=== PATIENT | male | born 1980 | race Caucasian/White ===

== ENCOUNTER 2021-01-23 13:24 | Emergency (ER) | payer SELFPAY ==
[2021-01-23] MEDS ORDERED: NA CHLORIDE 0.9% 1,000 ML with FOLIC ACID 1 MG, THIAMINE HCL 100 MG, MULTIVITAMINS INJ ... IV SCH ×4 (14:15)
[2021-01-23 14:20] LABS: Urine Blood Negative (Negative); Urine Glucose Negative (Negative); Urine Protein Negative (Negative)
[2021-01-23 14:25] LABS: Absolute Lymphocytes (CBC) 2.1 K/uL (0.7-4.9); Basophils % 0.7 % (0-1.3); Hematocrit 41.7 % (39.6-49.0); Lymphocytes % 30.4 % (15.3-44.8); MPV 8.2 fL (7.6-11.3); RBC Red Blood Cell Count 4.29 M/uL (4.33-5.43)
[2021-01-23] MEDS ORDERED: LORazepam 2 MG/ML VIAL ONE (14:26)
[2021-01-23] MEDS ORDERED: NA CHLORIDE 0.9% 1,000 ML ONE (14:26)
[2021-01-23 14:34] LABS: Protime INR 0.87
[2021-01-23 14:48] LABS: Barbiturates NEGATIVE (NEGATIVE); Benzodiazepines NEGATIVE (NEGATIVE); Cocaine NEGATIVE (NEGATIVE); METHAMPHETAM NEGATIVE (NEGATIVE); Methadone NEGATIVE (NEGATIVE); Opiates NEGATIVE (NEGATIVE); Phencyclidine NEGATIVE (NEGATIVE); THC Cannibis POSITIVE (NEGATIVE)
[2021-01-23 14:50] LABS: Albumin 4.1 g/dL (3.4-5.0); Alkaline Phosphatase 58 U/L (45-117); BUN Blood Urea Nitrogen 8 mg/dL (7-18); Bicarbonate 26 mmol/L (21-32); Bilirubin Direct < 0.1 mg/dL (0-0.2); Bilirubin Total 0.4 mg/dL (0.2-1.0); Glucose Level 99 mg/dL (74-106); Potassium 3.9 mmol/L (3.5-5.1); Protein, Total 7.1 g/dL (6.4-8.2); Sodium Level 143 mmol/L (136-145)
[2021-01-23 14:51] LABS: ALT/SGPT 464 U/L (12-78); AST/SGOT 452 U/L (15-37)
--- NOTE | 2021-01-23 18:36 | EDPHYS ---
Physician Documentation [facility] Name: Fredy Gunter Age: 40 yrs Sex: Male : 1980 Arrival Date: 01/23/2021 Time: 13:33 Bed 19 Private MD: ED Physician Calvin Whitley HPI: 01/23 14:06 This 40 yrs old Male presents to ER via EMS with complaints of Alcohol pm1 Withdrawal. 14:06 The patient presents to the emergency department with a history of substance abuse, pm1 Type: vodka, with a recent binge, 6 days. Onset: The symptoms/episode began/occurred 6 day(s) ago, as a result of getting kicked out by his girlfriend. Past psychiatric history: Prior diagnosis: anxiety and PTSD, Psychiatric medications include: none, Primary psychiatric physician: the patient does not have a primary psychiatric physician. Associated signs and symptoms: The patient has no apparent associated signs or symptoms, Pertinent positives; hallucinations, Pertinent negatives: abdominal pain, chest pain, homicidal ideation, nausea, shortness of breath, suicide ideation, vomiting. Severity of symptoms: in the emergency department the symptoms are unchanged Pain is currently a 0 / 10. The patient has experienced similar episodes in the past, multiple times, stopped drinking about 6 years. History of alcoholism. The patient has not recently seen a physician. Historical: - Allergies: 13:42 Latex, Natural Rubber; vg1 - Home Meds: 13:42 Zoloft Oral [Active]; Clonazepam Oral [Active]; Medication for PTSD-cant remember name vg1 [Active]; - PMHx: 13:42 Anxiety; PTSD; vg1 - Immunization history:: Adult Immunizations up to date. - Social history:: Smoking status: Patient denies any tobacco usage or history of. ROS: 14:06 Constitutional: Negative for fever, chills, and weight loss, Eyes: Negative for injury, pm1 pain, redness, and discharge, ENT: Negative for injury, pain, and discharge, Cardiovascular: Negative for chest pain, palpitations, and edema, Respiratory: Negative for shortness of breath, cough, wheezing, and pleuritic chest pain, Abdomen/GI: Negative for abdominal pain, nausea, vomiting, diarrhea, and constipation, Back: Negative for injury and pain, MS/Extremity: Negative for injury and deformity, Skin: Negative for injury, rash, and discoloration, Neuro: Negative for headache, weakness, numbness, tingling, and seizure. 14:06 Psych: Positive for alcohol dependence, visual hallucinations, Negative for homicidal ideation, suicide gesture, suicidal ideation. Exam: 14:06 Constitutional: This is a well developed, well nourished patient who is awake, alert, pm1 and in no acute distress. Head/Face: Normocephalic, atraumatic. Chest/axilla: Normal chest wall appearance and motion. Nontender with no deformity. No lesions are appreciated. 14:06 Back: No spinal tenderness. No costovertebral tenderness. Full range of motion. Skin: Warm, dry with normal turgor. Normal color with no rashes, no lesions, and no evidence of cellulitis. MS/ Extremity: Pulses equal, no cyanosis. Neurovascular intact. Full, normal range of motion. 14:06 Eyes: Exam is negative for acute changes, Extraocular movements: intact throughout, Conjunctiva: no acute changes, no injection. 14:06 ENT: Exam is negative for acute changes, Mouth: is normal, Lips: normal, Oral mucosa: normal, pink and intact, moist. 14:06 Cardiovascular: Exam negative for acute changes, Rate: normal, Rhythm: regular, Pulses: no pulse deficits are appreciated, Heart sounds: normal, normal S1and S2. 14:06 Respiratory: Exam negative for acute changes, respiratory distress, shortness of breath, Breath sounds: are clear throughout. 14:06 Abdomen/GI: Inspection: abdomen appears normal, Palpation: abdomen is soft and non-tender. 14:06 Neuro: Exam negative for acute changes, Orientation: is normal, Mentation: is normal, Motor: is normal, moves all fours, seizure activity, is not displayed by the patient. Vital Signs: 13:40 BP 132 / 99; Pulse 96; Resp 20; Temp 98.7; Pulse Ox 96% ; Weight 68.04 kg; Height 5 ft. vg1 11 in. (180.34 cm); Pain 7/10; 14:50 BP 134 / 88; Pulse 88; Resp 14; Pulse Ox 96% on R/A; vg1 16:06 BP 141 / 79; Pulse 95; Resp 16; Pulse Ox 95% on R/A; vg1 17:00 BP 106 / 68; Pulse 78; Resp 20; Pulse Ox 99% on R/A; vg1 13:40 Body Mass Index 20.92 (68.04 kg, 180.34 cm) vg1 MDM: 13:41 Patient medically screened. pm1 18:34 Data reviewed: vital signs. Data interpreted: Pulse oximetry: on room air is 99 %. pm1 Interpretation: normal. Counseling: I had a detailed discussion with the patient and/or guardian regarding: the historical points, exam findings, and any diagnostic results supporting the discharge/admit diagnosis, lab results, the need for outpatient follow up, for definitive care, a family practitioner, rehabilitation center, to return to the emergency department if symptoms worsen or persist or if there are any questions or concerns that arise at home. 20:06 ED course: Patient was upset that he was not being transferred directly to a alcohol pm1 rehabilitation center. Informed the patient that he does not meet any criteria for admission and will require to follow up with a rehab center such as [facility] and check himself in. 01/23 13:53 Order name: ETOH Level; Complete Time: 15:24 pm1 01/23 13:53 Order name: Acetaminophen; Complete Time: 15:24 pm1 01/23 13:53 Order name: Basic Metabolic Panel; Complete Time: 15:24 pm1 01/23 13:53 Order name: CBC with Diff; Complete Time: 14:29 pm01/23 13:53 Order name: Hepatic Function; Complete Time: 15:24 pm1 01/23 13:53 Order name: PT-INR; Complete Time: 15:24 pm01/23 13:53 Order name: Ptt, Activated; Complete Time: 15:24 pm1 01/23 13:53 Order name: Salicylate; Complete Time: 14:44 pm1 01/23 13:53 Order name: Urine Drug Screen; Complete Time: 14:50 pm1 01/23 14:20 Order name: Urine Dipstick-Ancillary; Complete Time: 14:21 EDMS 01/23 13:53 Order name: EKG; Complete Time: 13:53 pm1 01/23 13:53 Order name: EKG - Nurse/Tech; Complete Time: 14:47 pm1 01/23 13:53 Order name: IV Saline Lock; Complete Time: 14:25 pm1 01/23 13:53 Order name: Labs collected and sent; Complete Time: 14:25 pm1 01/23 13:53 Order name: Urine Dipstick-Ancillary (obtain specimen); Complete Time: 14:36 pm1 Administered Medications: 14:09 Drug: Ativan (LORazepam) 1 mg Route: IVP; Site: right antecubital; vg1 17:12 Follow up: Response: No adverse reaction; Marked relief of symptoms vg1 14:09 Drug: NS 0.9% 1000 ml Route: IV; Rate: 1000 ml; Site: left antecubital; vg1 17:11 Follow up: IV Status: Completed infusion; IV Intake: 1000ml vg1 14:47 Drug: Banana Bag - (NS 0.9% 1000 ml, foLIC Acid 1 mg, Thiamine 100 mg, Multivitamin 1 vg1 amp) Route: IV; Rate: calculated rate; Site: right antecubital; 17:12 Follow up: IV Status: Completed infusion; IV Intake: 1000ml vg1 19:29 Drug: Ativan (LORazepam) 1 mg Route: PO; vg1 Disposition: 01/24 18:49 Co-signature as Attending Physician, Calvin Whitley MD I agree with the assessment and rojelio plan of care. Disposition Summary: 01/23/21 18:36 Discharge Ordered Location: Home pm1 Problem: new pm1 Symptoms: have improved pm1 Condition: Stable pm1 Diagnosis - Alcohol abuse pm1 Followup: pm1 - With: Emergency Department - When: As needed - Reason: Worsening of condition Followup: pm1 - With: Private Physician - When: 2 - 3 days - Reason: Recheck today's complaints, Continuance of care, Re-evaluation by your physician Discharge Instructions: - Discharge Summary Sheet pm1 - Alcohol Abuse and Nutrition pm1 - Alcohol Abuse and Dependence Information, Adult pm1 Forms: - Medication Reconciliation Form pm1 - Thank You Letter pm1 - Antibiotic Education pm1 - Prescription Opioid Use pm1 Prescriptions: - chlordiazepoxide HCl 25 mg Oral capsule - take 1 capsule by ORAL route as directed for 5 days Day 1: Take 1 capsule every pm1 6 hours scheduled. Day 2: Take 1 capsule every 8 hours scheduled. Day 3: Take 1 capsule every 12 hours scheduled. Day 4: Take 1 capule at bedtime. Day 5: Take 1 capsule at bedtime; 11 capsule; Refills: 0, Product Selection Permitted Signatures: Dispatcher [employer] EDMS Gutierrez, Calvin, MD MD rojelio Marinas, Maverick, TAI METAL GRINDER pm1 Anabel Schulz, RN RN vg1
--- NOTE | 2021-01-23 18:36 | ER ---
Nurse's Notes [facility] Name: Fredy Gunter Age: 40 yrs Sex: Male : 1980 Arrival Date: 01/23/2021 Time: 13:33 Bed 19 Private MD: Diagnosis: Alcohol abuse Presentation: 01/23 13:40 Chief complaint: EMS states: Pt has been going through Alcohol Withdraw for the past vg1 three days; pt denies SI/HI. Coronavirus screen: Client denies travel out of the [place] in the last 14 days. Ebola Screen: Patient negative for fever greater than or equal to 101.5 degrees Fahrenheit, and additional compatible Ebola Virus Disease symptoms. Initial Sepsis Screen: Does the patient meet any 2 criteria? No. Patient's initial sepsis screen is negative. Does the patient have a suspected source of infection? No. Patient's initial sepsis screen is negative. Risk Assessment: Do you want to hurt yourself or someone else? Patient reports no desire to harm self or others. Onset of symptoms was January 20, 2021. 13:40 Method Of Arrival: EMS: [facility] vg1 13:40 Acuity: ASHLEE 3 vg1 Triage Assessment: 13:42 General: Appears in no apparent distress. uncomfortable, Behavior is cooperative, vg1 anxious. Pain: Complains of pain in right leg Pain currently is 7 out of 10 on a pain scale. EENT: No signs and/or symptoms were reported regarding the EENT system. Neuro: Level of Consciousness is awake, alert, obeys commands, Oriented to person, place, time, situation. Cardiovascular: Patient's skin is warm and dry. Respiratory: Airway is patent Respiratory effort is even, unlabored. GI: No signs and/or symptoms were reported involving the gastrointestinal system. : No signs and/or symptoms were reported regarding the genitourinary system. Derm: Skin is intact, is healthy with good turgor. Musculoskeletal: Circulation, motion, and sensation intact. Historical: - Allergies: 13:42 Latex, Natural Rubber; vg1 - Home Meds: 13:42 Zoloft Oral [Active]; Clonazepam Oral [Active]; Medication for PTSD-cant remember name vg1 [Active]; - PMHx: 13:42 Anxiety; PTSD; vg1 - Immunization history:: Adult Immunizations up to date. - Social history:: Smoking status: Patient denies any tobacco usage or history of. Screenin:46 Abuse screen: Denies threats or abuse. Nutritional screening: No deficits noted. vg1 Tuberculosis screening: No symptoms or risk factors identified. Fall Risk No fall in past 12 months (0 pts). No secondary diagnosis (0 pts). IV access (20 points). Ambulatory Aid- None/Bed Rest/Nurse Assist (0 pts). Gait- Normal/Bed Rest/Wheelchair (0 pts) Mental Status- Oriented to own ability (0 pts). Total Forman Fall Scale indicates No Risk (0-24 pts). Assessment: 13:46 Reassessment: SEE TRIAGE. vg1 14:50 Reassessment: Patient appears in no apparent distress at this time. No changes from vg1 previously documented assessment. Patient and/or family updated on plan of care and expected duration. Pain level reassessed. Patient is alert, oriented x 3, equal unlabored respirations, skin warm/dry/pink. 16:05 Reassessment: Patient appears in no apparent distress at this time. No changes from vg1 previously documented assessment. Patient and/or family updated on plan of care and expected duration. Pain level reassessed. Patient is alert, oriented x 3, equal unlabored respirations, skin warm/dry/pink. 17:12 Reassessment: Patient appears in no apparent distress at this time. No changes from vg1 previously documented assessment. Patient and/or family updated on plan of care and expected duration. Pain level reassessed. Patient is alert, oriented x 3, equal unlabored respirations, skin warm/dry/pink. 19:10 Reassessment: Pt is awake and alertx4. Is very apologetic after sudden outburst. [email or web address] Verbalizes understanding of d/c an follow up instructions. Denies questions or concerns. Verbalizes having a plan to follow up with a rehab facility as soon as possible and the need for alcohol cessation. Currently attempting to call ride home. Provider notified of patient being more agitated. Received verbal order for 1mg of Ativan PO. Vital Signs: 13:40 BP 132 / 99; Pulse 96; Resp 20; Temp 98.7; Pulse Ox 96% ; Weight 68.04 kg; Height 5 ft. vg1 11 in. (180.34 cm); Pain 7/10; 14:50 BP 134 / 88; Pulse 88; Resp 14; Pulse Ox 96% on R/A; vg1 16:06 BP 141 / 79; Pulse 95; Resp 16; Pulse Ox 95% on R/A; vg1 17:00 BP 106 / 68; Pulse 78; Resp 20; Pulse Ox 99% on R/A; vg1 13:40 Body Mass Index 20.92 (68.04 kg, 180.34 cm) vg1 ED Course: 13:33 Patient arrived in ED. vg1 13:40 Anabel Schulz, RN is Primary Nurse. vg1 13:41 Maverick Solo NP is PHCP. pm1 13:41 Calvin Whitley MD is Attending Physician. pm1 13:42 Triage completed. vg1 13:42 Arm band placed on. vg1 13:46 Patient has correct armband on for positive identification. Call light in reach. Side vg1 rails up X 1. 13:46 Maintain EMS IV. Dressing intact. Good blood return noted. Site clean \T\ dry. Gauge \T\ vg 1 site: 20 Right AC. Administered Medications: 14:09 Drug: Ativan (LORazepam) 1 mg Route: IVP; Site: right antecubital; vg1 17:12 Follow up: Response: No adverse reaction; Marked relief of symptoms vg1 14:09 Drug: NS 0.9% 1000 ml Route: IV; Rate: 1000 ml; Site: left antecubital; vg1 17:11 Follow up: IV Status: Completed infusion; IV Intake: 1000ml vg1 14:47 Drug: Banana Bag - (NS 0.9% 1000 ml, foLIC Acid 1 mg, Thiamine 100 mg, Multivitamin 1 vg1 amp) Route: IV; Rate: calculated rate; Site: right antecubital; 17:12 Follow up: IV Status: Completed infusion; IV Intake: 1000ml vg1 19:29 Drug: Ativan (LORazepam) 1 mg Route: PO; vg1 Intake: 17:11 IV: 1000ml; Total: 1000ml. vg1 17:12 IV: 1000ml; Total: 2000ml. vg1 Outcome: 18:36 Discharge ordered by . pm1 20:26 Patient left the ED. vg1 Signatures: Maverick Solo NP LENS MARKER pm1 Fredy Tavares RN RN [id number] Zeus, Anabel, RN RN vg1
[2021-01-23] MEDS ORDERED: LORAZEPAM 1 MG TABLET ONE (19:47)
[2021-01-23 20:38] VITALS: TEMP 98.7
[2021-01-23 20:43] VITALS: BP 106/68; O2SAT 99
--- NOTE | 2021-01-24 16:12 | EKG ---
Test Date: 2021-01-23 Test Time: 14:41:44 Floor Covering Layer: MARIANNE MEASUREMENT RESULTS: Intervals: Rate: 83 NV: 160 QRSD: 94 QT: 362 QTc: 425 [place]: P: 74 NV: 160 QRS: 92 T: 59 INTERPRETIVE STATEMENTS: Normal sinus rhythm Rightward axis Borderline ECG No previous ECG available for comparison Electronically Signed On 01-24-21 16:08:45 CDT by Sincere Denton
== END 2021-01-23 20:26 | disposition home or self-care (01) ==
LOC: ER 13:24
DX: F10.20 Alcohol dependence, uncomplicated (principal); F43.10 Post-traumatic stress disorder, unspecified; Z91.040 Latex allergy status; Z91.048 Other nonmedicinal substance allergy status
CPT/HCPCS: 36415; 80048; 80076; 80307; 80320; 80329; 81003; 85025; 85610; 85730; 93005; 96361; 96365; 96366; 96375; 99283; J3411; J7030